=== PATIENT | male | born 1990 | race Caucasian/White ===

== ENCOUNTER 2016-04-15 14:53 | Emergency (ER) | payer BC ==
[~2016-04-15 14:53] MED LIST: FLAG500T PO; IBUP600T26 OR; NO HISTORICAL MEDS; NORCOTAB OR; PERCOCET PO; SEPT800T PO; TYLE650T30 PO
[2016-04-15 15:34] LABS: MEAN CORPUSCULAR HEMOGLOBIN 29.6 pg (27.0-33.0); MEAN CORPUSCULAR HGB CONC 33.3 g/dl (32.0-36.5); MEAN CORPUSCULAR VOLUME 88.9 fl (80.0-96.0); PLATELET COUNT, AUTOMATED 289 k/mm3 (150-450); RED CELL DISTRIBUTION WIDTH 13.1 % (11.5-14.5); WHITE BLOOD COUNT 16.8 K/mm3 (4.0-10.0)
--- NOTE | 2016-04-15 15:49 | REP ---
Clinical: Syncope. Chest pain . Comparison: 12/28/2015 . Technique: PA and lateral. Findings: The mediastinum and cardiac silhouette are normal. The lung palacios are clear and without acute consolidation, effusion, or pneumothorax. The skeletal structures are intact and normal. Impression: 1. No acute cardiopulmonary process. Signed by Angel Hassan MD 04/15/2016 03:40 P
[2016-04-15 15:51] LABS: ANION GAP 8 MEQ/L (8-16); BLOOD UREA NITROGEN 17 MG/DL (7-18); CALCIUM LEVEL 8.6 MG/DL (8.5-10.1); CARBON DIOXIDE LEVEL 29 MEQ/L (21-32); CHLORIDE LEVEL 104 MEQ/L (98-107); CREATININE FOR GFR 1.24 MG/DL (0.70-1.30); GLOMERULAR FILTRATION RATE > 60.0 (>60); GLUCOSE, FASTING 144 MG/DL (70-105); POTASSIUM SERUM 3.3 MEQ/L (3.5-5.1); SODIUM LEVEL 141 MEQ/L (136-145); T UPTAKE 33 % (33-40); THYROXINE (T4) 9.8 UG/DL (4.5-12.0)
[2016-04-15 15:52] LABS: BANDS 2 % (< 11)
--- NOTE | 2016-04-15 18:41 | EDDOCDS ---
Nurse's Notes [facility] Name: Uziel Jordan Age: 25 yrs Sex: Male : 1990 Arrival Date: 04/15/2016 Time: 14:53 Bed 10 Private MD: Chema Wang MD Diagnosis: Heat syncope Presentation: 04/15 15:07 Presenting complaint: Patient states: states that he was working on his bathroom, ml6 states felt overheated, went outside and vomited x 1. Adult Sepsis Screening: The patient does not have new or worsening altered mentation. Patient's respiratory rate is less than 22. Systolic blood pressure is greater than 100. Patient has a qSOFA score of 0- Negative Sepsis Screen. Suicide/Homicide risk assessment- the patient denies having any suicidal and/or homicidal ideations and does not present with any other emotional, behavioral or mental health complaints. Status: Patient is not a service trainer or dependent. Transition of care: patient was not received from another setting of care. 15:07 Acuity: KITTY Level 3 ml6 15:07 Method Of Arrival: Ambulance ml6 Triage Assessment: 15:11 General: Appears in no apparent distress, Behavior is appropriate for age, cooperative. ml6 Pain: Denies pain. HIV screening NA for this visit Offered previously. Neurological: No deficits noted. Level of Consciousness is awake, alert, Oriented to person, place, time, Level Vial Grinder are equal bilaterally Moves all extremities. Full function Gait is steady, Speech is normal, Facial symmetry appears normal. Cardiovascular: No deficits noted. Capillary refill < 3 seconds is brisk in bilateral fingers toes Heart tones S1 S2 present. Respiratory: No deficits noted. Airway is patent Breath sounds are clear bilaterally. GI: No deficits noted. Historical: - Allergies: Hydrocodone-Acetaminophen (Vomit); - Home Meds: 1. oxycodone-acetaminophen 5-325 mg Oral tab 1 tab every 4-6 hours (Last dose: 04/15/2016 10:30) 2. amoxicillin 500 mg Oral cap 1 cap every 8 hours (Last dose: 04/15/2016 12:00) 3. Synthroid 150 mcg Oral tab 1 tab once daily (Last dose: 04/15/2016 10:00) - PMHx: Hypothyroidism; - PSHx: Thyroidectomy (2015); cyst removed from chest (2016); Appendectomy (2012); - Social history: Smoking status: Patient states was never smoker of tobacco. No barriers to communication noted, Speaks appropriately for age. - Family history: Not pertinent. - : The pt / caregiver states he / she is not on anticoagulants. Home medication list is obtained from the patient. - Exposure Risk Screening:: None identified. Screenin:17 Screening information is obtained from the patient. Fall risk: No risks identified. ml6 Assistance ADL's: requires no assistance with activities of daily living. Abuse/DV Screen: The patient / caregiver reports he/she is: not in a situation that causes fear, pain or injury. Nutritional screening: No deficits noted. Advance Directives: Currently, there is no health care proxy. home support is adequate. Assessment: 15:11 General: see triage assessment. ml6 16:15 Reassessment: Patient appears in no apparent distress at this time. Patient denies pain ml6 at this time. Patient states feeling better. Patient states symptoms have improved. 17:15 General: Appears in no apparent distress, comfortable. Pain: Denies pain. Neurological: ml6 No deficits noted. Level of Consciousness is awake, alert, Oriented to person, place, time, Level Vial Grinder are equal bilaterally. Cardiovascular: No deficits noted. Capillary refill < 3 seconds is brisk in bilateral fingers toes. Respiratory: No deficits noted. Airway is patent Respiratory effort is even, unlabored, Respiratory pattern is regular, symmetrical, Breath sounds are clear bilaterally. GI: No deficits noted. 18:37 General: Appears in no apparent distress, comfortable, Behavior is appropriate for age, ml6 cooperative. Pain: Denies pain. Neurological: No deficits noted. Level of Consciousness is awake, alert, Oriented to person, place, time, Level Vial Grinder are equal bilaterally Moves all extremities. Gait is steady. Cardiovascular: No deficits noted. Capillary refill < 3 seconds is brisk in bilateral fingers toes Heart tones S1 S2 present. Respiratory: No deficits noted. Airway is patent Respiratory effort is even, unlabored, Respiratory pattern is regular, symmetrical, Breath sounds are clear bilaterally. GI: No deficits noted. Abdomen is flat, Bowel sounds present X 4 quads. Vital Signs: 15:10 BP 133 / 75; Pulse 102; Resp 18; Temp 97.8(O); Pulse Ox 98% on R/A; Weight 88.45 kg ml6 (R); Height 6 ft. 0 in. (182.88 cm) (R); Pain 0/10; 15:16 BP 135 / 72 Supine; Pulse 102; ml6 15:16 BP 127 / 72 Sitting; Pulse 105; ml6 15:16 BP 130 / 76 Standing; Pulse 106; ml6 15:48 BP 132 / 72 (auto/); ml6 15:48 Pulse 98 MON; Pulse Ox 99% ; ml6 16:18 BP 119 / 67 (auto/); ml6 16:18 Pulse 96 MON; Pulse Ox 98% ; ml6 16:48 BP 123 / 69 (auto/); ml6 16:48 Pulse 90 MON; Pulse Ox 99% ; ml6 17:32 BP 128 / 69 (auto/); ml6 17:32 Pulse 98 MON; Pulse Ox 100% ; ml6 17:48 BP 130 / 63 (auto/); ml6 17:48 Pulse 90 MON; Resp 16; Pulse Ox 98% on R/A; ml6 18:18 BP 126 / 73 (auto/); ml6 18:18 Pulse 94 MON; Resp 16; Temp 98.3(O); Pulse Ox 98% on R/A; Pain 0/10; ml6 15:10 Body Mass Index 26.45 (88.45 kg, 182.88 cm) 6 Vitals: 15:10 Log In Time N/A - ambulance arrival. [facility] ED Course: 14:55 Patient visited by Malka Clark PCA. ar3 14:55 Vince Montgomery, RADHA is Primary Nurse. ar3 14:55 Chema Wang is Private Physician. ar3 14:55 Patient moved to Waiting ar3 14:55 Patient moved to 10 ar3 15:07 Maria M Ray FNP is PHCP. le 15:08 Triage Initiated ml6 15:15 EKG done. (by ED staff). Reviewed by Maria M AGUILAR. dem1 15:18 The patient / caregiver is instructed regarding the plan of care and ED course. ml6 15:18 Patient has correct armband on for positive identification. Placed in gown. Bed in low dem1 position. Call light in reach. Side rails up X2. monitor and storage bin tender on. Pulse ox on. NIBP on. 15:18 Inserted peripheral IV: 18gauge IV in left antecubital area and blood collected. ml6 Patient tolerated the procedure well. Labs drawn. (by ED staff). 15:20 Patient visited by Barry Schumacher. dem1 15:28 Patient visited by Maria M Ray FNP. le 15:28 Patient visited by Maria M Ray FNP. le 15:59 [place] [place] was scanned into [employer] and attached to record. gb 16:03 Patient visited by Vince Montgomery RN. ml6 16:05 DIFFERENTIAL NO CHARGE Sent. ld5 16:39 Chest, 2 View (pa\E\lat) Returned. EDMS 17:12 Patient visited by Vince Montgomery, RADHA. ml6 17:41 Patient visited by Vince Montgomery RN. ml6 18:00 Chema Wang is Referral Physician. le 18:00 [facility], Maria Elena\ [place] is Referral Physician. le 18:40 Discontinued IV bleeding controlled, pressure dressing applied, No redness/swelling at ml6 site. No procedures done that require assistance. Administered Medications: 16:08 Drug: NS 0.9% 1000 ml [sodium chloride 0.9 % intravenous solution] Route: IV; Rate: ml6 bolus; Site: left antecubital; 17:41 Follow up: IV Status: Completed infusion; Infusion discontinued; IV Intake: 1000ml ml6 Intake: 17:41 IV: 1000.00ml; Total: 1000.00ml. ml6 Order Results: Lab Order: CBC with Diff; SPEC'M 04/15/16 15:05 Test: WHITE BLOOD COUNT; Value: 16.8; Range: 4.0-10.0; Abnormal: Above high normal; Units: K/mm3; Status: F Test: RED BLOOD COUNT; Value: 4.73; Range: 4.30-6.10; Units: M/mm3; Status: F Test: HEMOGLOBIN; Value: 14.0; Range: 14.0-18.0; Units: g/dl; Status: F Test: HEMATOCRIT; Value: 42.1; Range: 42.0-52.0; Units: %; Status: F Test: MEAN CORPUSCULAR VOLUME; Value: 88.9; Range: 80.0-96.0; Units: fl; Status: F Test: MEAN CORPUSCULAR HEMOGLOBIN; Value: 29.6; Range: 27.0-33.0; Units: pg; Status: F Test: MEAN CORPUSCULAR HGB CONC; Value: 33.3; Range: 32.0-36.5; Units: g/dl; Status: F Test: RED CELL DISTRIBUTION WIDTH; Value: 13.1; Range: 11.5-14.5; Units: %; Status: F Test: PLATELET COUNT, AUTOMATED; Value: 289; Range: 150-450; Units: k/mm3; Status: F Test: NEUTROPHILS; Value: 79; Range: 35-75; Abnormal: Above high normal; Units: %; Status: F Test: BANDS; Value: 2; Range: < 11; Units: %; Status: F Test: LYMPHOCYTES; Value: 16; Range: 16-52; Units: %; Status: F Test: MONOCYTES; Value: 3; Range: 0-8; Units: %; Status: F Test: RBC MORPHOLOGY; Value: NORMAL; Status: F Lab Order: [facility] 04/15/16 15:05 Test: GLUCOSE, FASTING; Value: 144; Range: 70-105; Abnormal: Above high normal; Units: MG/DL; Status: F Test: BLOOD UREA NITROGEN; Value: 17; Range: 7-18; Units: MG/DL; Status: F Test: CREATININE FOR GFR; Value: 1.24; Range: 0.70-1.30; Units: MG/DL; Status: F Test: GLOMERULAR FILTRATION RATE; Value: > 60.0; Range: >60; Status: F Test: SODIUM LEVEL; Value: 141; Range: 136-145; Units: MEQ/L; Status: F Test: POTASSIUM SERUM; Value: 3.3; Range: 3.5-5.1; Abnormal: Below low normal; Units: MEQ/L; Status: F Test: CHLORIDE LEVEL; Value: 104; Range: 98-107; Units: MEQ/L; Status: F Test: CARBON DIOXIDE LEVEL; Value: 29; Range: 21-32; Units: MEQ/L; Status: F Test: ANION GAP; Value: 8; Range: 8-16; Units: MEQ/L; Status: F Test: CALCIUM LEVEL; Value: 8.6; Range: 8.5-10.1; Units: MG/DL; Status: F Test Note: ; Units are mL/min/1.73 m2 Chronic Kidney Disease Staging per NKF: Stage I & II GFR >=60 Normal to Mildly Decreased Stage III GFR 30-59 Moderately Decreased Stage IV GFR 15-29 Severely Decreased Stage V GFR <15 Very Little GFR Left ESRD GFR <15 on CHEMICAL DEPENDENCY NURSE Lab Order: Thyroid Profile; SPEC'M 04/15/16 15:05 Test: T UPTAKE; Value: 33; Range: 33-40; Units: %; Status: F Test: THYROXINE (T4); Value: 9.8; Range: 4.5-12.0; Units: UG/DL; Status: F Test: FREE THYROXINE INDEX; Value: 3.2; Range: 1.4-3.8; Units: %; Status: F Test: THYROID STIMULATING HORMONE; Value: 53.200; Range: 0.358-3.740; Abnormal: Above high normal; Units: uIU/ML; Status: F Lab Order: PLATELET ESTIMATE; SPEC'M 04/15/16 15:05 Test: PLATELET ESTIMATE; Value: NORMAL; Range: NORMAL; Status: F Radiology Order: Chest, 2 View (pa\E\lat) Test: Chest, 2 View (pa\E\lat) REASON FOR EXAMINATION: near syncope; Clinical: Syncope. Chest pain .; ; Comparison: 12/28/2015 .; ; Technique: PA and lateral.; ; Findings:; The mediastinum and cardiac silhouette are normal. The lung palacios are clear and; without acute consolidation, effusion, or pneumothorax. The skeletal structures; are intact and normal.; ; Impression:; 1. No acute cardiopulmonary process.; ; ; Signed by; Angel Hassan MD 04/15/2016 03:40 P; Outcome: 18:00 Discharge ordered by Provider. le 18:40 Discharge Assessment: patient administered narcotics - no. The following High Risk ml6 Discharge criteria are identified: None. Discharged to home ambulatory, with parent. with significant other. Condition: improved. Discharge instructions given to patient, Instructed on discharge instructions, follow up and referral plans. medication usage, Demonstrated understanding of instructions, medications, Pt was receptive of discharge instructions/ teaching. No special radiology studies were completed. Property :Personal belongings accompany Pt. 18:41 Patient left the ED. ml6 Signatures: Dispatcher [employer] EDMS Aracely Angel, Reg Reg gb Maria M Ray, MAILMASTER MAILMASTER Vince Eaton, RN RN ml6 Malka Clark, PARAMEDIC RN PARAMEDIC RN ar3 Africa Fernandes,RN RN ld5 Barry Schumacher1 MTDD
--- NOTE | 2016-04-15 18:41 | EDDOCDS ---
Physician Documentation [facility] Name: Uziel Jordan Age: 25 yrs Sex: Male : 1990 Arrival Date: 04/15/2016 Time: 14:53 Bed 10 Private MD: Chema Wang MD Disposition: 04/15/16 18:00 Discharged to Home/Self Care. Impression: Heat syncope. - Condition is Stable. - Discharge Instructions: Near-Syncope. - Medication Reconciliation, Local Pharmacy Hours form. - Follow up: Chema Wang; When: Call to arrange an appointment; Reason: Recheck today's complaints, Continuance of care. Follow up: [facility], \T\ [place]; When: Call to arrange an appointment; Reason: Recheck today's complaints, Continuance of care. - Problem is an acute exacerbation. - Symptoms are resolved. - Notes: Keep hydrated Ensure you areeating regular nutritious meals Return to the ED for any further concerns Historical: - Allergies: Hydrocodone-Acetaminophen (Vomit); - Home Meds: 1. oxycodone-acetaminophen 5-325 mg Oral tab 1 tab every 4-6 hours (Last dose: 04/15/2016 10:30) 2. amoxicillin 500 mg Oral cap 1 cap every 8 hours (Last dose: 04/15/2016 12:00) 3. Synthroid 150 mcg Oral tab 1 tab once daily (Last dose: 04/15/2016 10:00) - PMHx: Hypothyroidism; - PSHx: Thyroidectomy (2015); cyst removed from chest (2015); Appendectomy (2011); - Social history: Smoking status: Patient states was never smoker of tobacco. No barriers to communication noted, Speaks appropriately for age. - Family history: Not pertinent. - : The pt / caregiver states he / she is not on anticoagulants. Home medication list is obtained from the patient. - Exposure Risk Screening:: None identified. Vital Signs: 04/15 15:10 BP 133 / 75; Pulse 102; Resp 18; Temp 97.8(O); Pulse Ox 98% on R/A; Weight 88.45 kg / ml6 195 lbs (R); Height 6 ft. 0 in. (182.88 cm) (R); Pain 0/10; 15:16 BP 135 / 72 Supine; Pulse 102; ml6 15:16 BP 127 / 72 Sitting; Pulse 105; ml6 15:16 BP 130 / 76 Standing; Pulse 106; ml6 15:48 BP 132 / 72 (auto/); ml6 15:48 Pulse 98 MON; Pulse Ox 99% ; ml6 16:18 BP 119 / 67 (auto/); ml6 16:18 Pulse 96 MON; Pulse Ox 98% ; ml6 16:48 BP 123 / 69 (auto/); ml6 16:48 Pulse 90 MON; Pulse Ox 99% ; ml6 17:32 BP 128 / 69 (auto/); ml6 17:32 Pulse 98 MON; Pulse Ox 100% ; ml6 17:48 BP 130 / 63 (auto/); ml6 17:48 Pulse 90 MON; Resp 16; Pulse Ox 98% on R/A; ml6 18:18 BP 126 / 73 (auto/); ml6 18:18 Pulse 94 MON; Resp 16; Temp 98.3(O); Pulse Ox 98% on R/A; Pain 0/10; ml6 15:10 Body Mass Index 26.45 (88.45 kg, 182.88 cm) ml6 MDM: 15:08 Orthostatic VS ordered. le 15:09 Chest, 2 View (pa\E\lat) Ordered. EDMS 15:09 ECG WITH READING ER PHYS+CARDIAG ordered. EDMS 15:26 Fluid Challenge ordered. le 15:28 CBC with Diff Ordered. EDMS 15:28 BMP Ordered. EDMS 15:28 Thyroid Profile Ordered. EDMS 15:35 DIFFERENTIAL NO CHARGE Ordered. EDMS 15:35 PLATELET ESTIMATE Ordered. EDMS 15:52 Financial registration complete. gb 15:59 [place] [place] was scanned into [employer] and attached to record. gb 16:02 CBC with Diff Reviewed. le 16:02 BMP Reviewed. le 16:02 Thyroid Profile Reviewed. le 16:02 PLATELET ESTIMATE Reviewed. le 16:04 NS 0.9% 1000 ml IV at bolus once ordered. le Administered Medications: 16:08 Drug: NS 0.9% 1000 ml [sodium chloride 0.9 % intravenous solution] Route: IV; Rate: ml6 bolus; Site: left antecubital; 17:41 Follow up: IV Status: Completed infusion; Infusion discontinued; IV Intake: 1000ml ml6 Signatures: Dispatcher [employer] EDMS Aracely Angel, Reg Reg gb Maria M Ray, NATIONAL SALES REPRESENTATIVE NATIONAL SALES REPRESENTATIVE Vince Eaton, RN RN ml6 The chart was reviewed and I authenticate all verbal orders and agree with the evaluation and treatment provided.Attachments: 15:59 [facility] Payment Agreement gb MTDD
--- NOTE | 2016-04-15 19:50 | ECGEPIP ---
Stationary ECG Study [facility] - ED Test Date: 2016-04-15 Pat Name: KATIE SCOTT Department: Room: - Gender: M Event Technician: alba : 1990 Requested By: REANNA AGUILAR Order Number: [id number] Reading MD: Kassie Meier Measurements Intervals [place] Rate: 100 P: 37 WI: 140 QRS: 51 QRSD: 93 T: 29 QT: 288 QTc: 372 Interpretive Statements SINUS TACHYCARDIA NONSPECIFIC T-WAVE ABNORMALITY ABNORMAL RHYTHM ECG Electronically Signed On 04-15-2016 19:49:58 EST by Kassie Meier
--- NOTE | 2016-04-17 19:41 | EDDOCDS ---
Physician Documentation [facility] Name: Uziel Jordan Age: 25 yrs Sex: Male : 1990 Arrival Date: 04/15/2016 Time: 14:53 Bed 10 Private MD: Chema Wang MD Disposition: 04/15/16 18:00 Discharged to Home/Self Care. Impression: Heat syncope. - Condition is Stable. - Discharge Instructions: Near-Syncope. - Medication Reconciliation, Local Pharmacy Hours form. - Follow up: Chema Wang; When: Call to arrange an appointment; Reason: Recheck today's complaints, Continuance of care. Follow up: [facility], \T\ [place]; When: Call to arrange an appointment; Reason: Recheck today's complaints, Continuance of care. - Problem is an acute exacerbation. - Symptoms are resolved. - Notes: Keep hydrated Ensure you areeating regular nutritious meals Return to the ED for any further concerns Historical: - Allergies: Hydrocodone-Acetaminophen (Vomit); - Home Meds: 1. oxycodone-acetaminophen 5-325 mg Oral tab 1 tab every 4-6 hours (Last dose: 04/15/2016 10:30) 2. amoxicillin 500 mg Oral cap 1 cap every 8 hours (Last dose: 04/15/2016 12:00) 3. Synthroid 150 mcg Oral tab 1 tab once daily (Last dose: 04/15/2016 10:00) - PMHx: Hypothyroidism; - PSHx: Thyroidectomy (2015); cyst removed from chest (2015); Appendectomy (2011); - Social history: Smoking status: Patient states was never smoker of tobacco. No barriers to communication noted, Speaks appropriately for age. - Family history: Not pertinent. - : The pt / caregiver states he / she is not on anticoagulants. Home medication list is obtained from the patient. - Exposure Risk Screening:: None identified. Vital Signs: 04/15 15:10 BP 133 / 75; Pulse 102; Resp 18; Temp 97.8(O); Pulse Ox 98% on R/A; Weight 88.45 kg / ml6 195 lbs (R); Height 6 ft. 0 in. (182.88 cm) (R); Pain 0/10; 15:16 BP 135 / 72 Supine; Pulse 102; ml6 15:16 BP 127 / 72 Sitting; Pulse 105; ml6 15:16 BP 130 / 76 Standing; Pulse 106; ml6 15:48 BP 132 / 72 (auto/); ml6 15:48 Pulse 98 MON; Pulse Ox 99% ; ml6 16:18 BP 119 / 67 (auto/); ml6 16:18 Pulse 96 MON; Pulse Ox 98% ; ml6 16:48 BP 123 / 69 (auto/); ml6 16:48 Pulse 90 MON; Pulse Ox 99% ; ml6 17:32 BP 128 / 69 (auto/); ml6 17:32 Pulse 98 MON; Pulse Ox 100% ; ml6 17:48 BP 130 / 63 (auto/); ml6 17:48 Pulse 90 MON; Resp 16; Pulse Ox 98% on R/A; ml6 18:18 BP 126 / 73 (auto/); ml6 18:18 Pulse 94 MON; Resp 16; Temp 98.3(O); Pulse Ox 98% on R/A; Pain 0/10; ml6 15:10 Body Mass Index 26.45 (88.45 kg, 182.88 cm) ml6 MDM: 15:08 Orthostatic VS ordered. le 15:09 Chest, 2 View (pa\E\lat) Ordered. EDMS 15:09 ECG WITH READING ER PHYS+CARDIAG ordered. EDMS 15:26 Fluid Challenge ordered. le 15:28 CBC with Diff Ordered. EDMS 15:28 BMP Ordered. EDMS 15:28 Thyroid Profile Ordered. EDMS 15:35 DIFFERENTIAL NO CHARGE Ordered. EDMS 15:35 PLATELET ESTIMATE Ordered. EDMS 15:52 Financial registration complete. gb 15:59 [place] [place] Payment Agreement was scanned into [employer] and attached to record. gb 16:02 CBC with Diff Reviewed. le 16:02 BMP Reviewed. le 16:02 Thyroid Profile Reviewed. le 16:02 PLATELET ESTIMATE Reviewed. le 16:04 NS 0.9% 1000 ml IV at bolus once ordered. le 20:11 T-Sheet-- Draft Copy was scanned into [employer] and attached to record. klr 04/17 09:50 ECG/EKG was scanned into [employer] and attached to record. lg Administered Medications: 04/15 16:08 Drug: NS 0.9% 1000 ml [sodium chloride 0.9 % intravenous solution] Route: IV; Rate: ml6 bolus; Site: left antecubital; 17:41 Follow up: IV Status: Completed infusion; Infusion discontinued; IV Intake: 1000ml ml6 Signatures: Dispatcher [employer] EDMS Aracely Angel, Reg Reg gb Gaye Inman, Reg Reg lg Maria M Ray, CUPOLA CHARGER CUPOLA CHARGER Vince Eaton, RN RN ml6 Shayy Alfred The chart was reviewed and I authenticate all verbal orders and agree with the evaluation and treatment provided.Attachments: 15:59 [facility] Payment Agreement gb 20:11 T-Sheet-- Draft Copy klr 04/17 09:50 ECG/EKG lg Chart Complete MTDD
--- NOTE | 2016-04-17 19:42 | EDDOCDS ---
Physician Documentation [facility] Name: Uziel Jordan Age: 25 yrs Sex: Male : 1990 Arrival Date: 04/15/2016 Time: 14:53 Bed 10 Private MD: Chema Wang MD Disposition: 04/15/16 18:00 Discharged to Home/Self Care. Impression: Heat syncope. - Condition is Stable. - Discharge Instructions: Near-Syncope. - Medication Reconciliation, Local Pharmacy Hours form. - Follow up: Chema Wang; When: Call to arrange an appointment; Reason: Recheck today's complaints, Continuance of care. Follow up: [facility], \T\ [place]; When: Call to arrange an appointment; Reason: Recheck today's complaints, Continuance of care. - Problem is an acute exacerbation. - Symptoms are resolved. - Notes: Keep hydrated Ensure you areeating regular nutritious meals Return to the ED for any further concerns Historical: - Allergies: Hydrocodone-Acetaminophen (Vomit); - Home Meds: 1. oxycodone-acetaminophen 5-325 mg Oral tab 1 tab every 4-6 hours (Last dose: 04/15/2016 10:30) 2. amoxicillin 500 mg Oral cap 1 cap every 8 hours (Last dose: 04/15/2016 12:00) 3. Synthroid 150 mcg Oral tab 1 tab once daily (Last dose: 04/15/2016 10:00) - PMHx: Hypothyroidism; - PSHx: Thyroidectomy (2015); cyst removed from chest (2015); Appendectomy (2011); - Social history: Smoking status: Patient states was never smoker of tobacco. No barriers to communication noted, Speaks appropriately for age. - Family history: Not pertinent. - : The pt / caregiver states he / she is not on anticoagulants. Home medication list is obtained from the patient. - Exposure Risk Screening:: None identified. Vital Signs: 04/15 15:10 BP 133 / 75; Pulse 102; Resp 18; Temp 97.8(O); Pulse Ox 98% on R/A; Weight 88.45 kg / ml6 195 lbs (R); Height 6 ft. 0 in. (182.88 cm) (R); Pain 0/10; 15:16 BP 135 / 72 Supine; Pulse 102; ml6 15:16 BP 127 / 72 Sitting; Pulse 105; ml6 15:16 BP 130 / 76 Standing; Pulse 106; ml6 15:48 BP 132 / 72 (auto/); ml6 15:48 Pulse 98 MON; Pulse Ox 99% ; ml6 16:18 BP 119 / 67 (auto/); ml6 16:18 Pulse 96 MON; Pulse Ox 98% ; ml6 16:48 BP 123 / 69 (auto/); ml6 16:48 Pulse 90 MON; Pulse Ox 99% ; ml6 17:32 BP 128 / 69 (auto/); ml6 17:32 Pulse 98 MON; Pulse Ox 100% ; ml6 17:48 BP 130 / 63 (auto/); ml6 17:48 Pulse 90 MON; Resp 16; Pulse Ox 98% on R/A; ml6 18:18 BP 126 / 73 (auto/); ml6 18:18 Pulse 94 MON; Resp 16; Temp 98.3(O); Pulse Ox 98% on R/A; Pain 0/10; ml6 15:10 Body Mass Index 26.45 (88.45 kg, 182.88 cm) ml6 MDM: 15:08 Orthostatic VS ordered. le 15:09 Chest, 2 View (pa\E\lat) Ordered. EDMS 15:09 ECG WITH READING ER PHYS+CARDIAG ordered. EDMS 15:26 Fluid Challenge ordered. le 15:28 CBC with Diff Ordered. EDMS 15:28 BMP Ordered. EDMS 15:28 Thyroid Profile Ordered. EDMS 15:35 DIFFERENTIAL NO CHARGE Ordered. EDMS 15:35 PLATELET ESTIMATE Ordered. EDMS 15:52 Financial registration complete. gb 15:59 [facility] [place] Payment Agreement was scanned into [employer] and attached to record. gb 16:02 CBC with Diff Reviewed. le 16:02 BMP Reviewed. le 16:02 Thyroid Profile Reviewed. le 16:02 PLATELET ESTIMATE Reviewed. le 16:04 NS 0.9% 1000 ml IV at bolus once ordered. le 20:11 T-Sheet-- Draft Copy was scanned into [employer] and attached to record. klr 04/17 09:50 ECG/EKG was scanned into [employer] and attached to record. lg Administered Medications: 04/15 16:08 Drug: NS 0.9% 1000 ml [sodium chloride 0.9 % intravenous solution] Route: IV; Rate: ml6 bolus; Site: left antecubital; 17:41 Follow up: IV Status: Completed infusion; Infusion discontinued; IV Intake: 1000ml ml6 Signatures: Dispatcher [employer] EDMS Aracely Angel, Reg Reg gb Gaye Inman, Reg Reg lg Maria M Ray, ORGANIC LAB WORKER ORGANIC LAB WORKER Vince Eaton, RN RN ml6 Shayy Alfred The chart was reviewed and I authenticate all verbal orders and agree with the evaluation and treatment provided.Attachments: 15:59 [facility] Payment Agreement gb 20:11 T-Sheet-- Draft Copy klr 04/17 09:50 ECG/EKG lg Chart Complete MTDD
--- NOTE | 2016-04-17 19:42 | EDDOCDS ---
Nurse's Notes [facility] Name: Katie Scott Age: 25 yrs Sex: Male : 1990 Arrival Date: 04/15/2016 Time: 14:53 Bed 10 Private MD: Chema Wang MD Diagnosis: Heat syncope Presentation: 04/15 15:07 Presenting complaint: Patient states: states that he was working on his bathroom, ml6 states felt overheated, went outside and vomited x 1. Adult Sepsis Screening: The patient does not have new or worsening altered mentation. Patient's respiratory rate is less than 22. Systolic blood pressure is greater than 100. Patient has a qSOFA score of 0- Negative Sepsis Screen. Suicide/Homicide risk assessment- the patient denies having any suicidal and/or homicidal ideations and does not present with any other emotional, behavioral or mental health complaints. Status: Patient is not a medical service technician or dependent. Transition of care: patient was not received from another setting of care. 15:07 Acuity: KITTY Level 3 ml6 15:07 Method Of Arrival: Ambulance ml6 Triage Assessment: 15:11 General: Appears in no apparent distress, Behavior is appropriate for age, cooperative. ml6 Pain: Denies pain. HIV screening NA for this visit Offered previously. Neurological: No deficits noted. Level of Consciousness is awake, alert, Oriented to person, place, time, Corporate Claims Examiner are equal bilaterally Moves all extremities. Full function Gait is steady, Speech is normal, Facial symmetry appears normal. Cardiovascular: No deficits noted. Capillary refill < 3 seconds is brisk in bilateral fingers toes Heart tones S1 S2 present. Respiratory: No deficits noted. Airway is patent Breath sounds are clear bilaterally. GI: No deficits noted. Historical: - Allergies: Hydrocodone-Acetaminophen (Vomit); - Home Meds: 1. oxycodone-acetaminophen 5-325 mg Oral tab 1 tab every 4-6 hours (Last dose: 04/15/2016 10:30) 2. amoxicillin 500 mg Oral cap 1 cap every 8 hours (Last dose: 04/15/2016 12:00) 3. Synthroid 150 mcg Oral tab 1 tab once daily (Last dose: 04/15/2016 10:00) - PMHx: Hypothyroidism; - PSHx: Thyroidectomy (2015); cyst removed from chest (2016); Appendectomy (2012); - Social history: Smoking status: Patient states was never smoker of tobacco. No barriers to communication noted, Speaks appropriately for age. - Family history: Not pertinent. - : The pt / caregiver states he / she is not on anticoagulants. Home medication list is obtained from the patient. - Exposure Risk Screening:: None identified. Screenin:17 Screening information is obtained from the patient. Fall risk: No risks identified. ml6 Assistance ADL's: requires no assistance with activities of daily living. Abuse/DV Screen: The patient / caregiver reports he/she is: not in a situation that causes fear, pain or injury. Nutritional screening: No deficits noted. Advance Directives: Currently, there is no health care proxy. home support is adequate. Assessment: 15:11 General: see triage assessment. ml6 16:15 Reassessment: Patient appears in no apparent distress at this time. Patient denies pain ml6 at this time. Patient states feeling better. Patient states symptoms have improved. 17:15 General: Appears in no apparent distress, comfortable. Pain: Denies pain. Neurological: ml6 No deficits noted. Level of Consciousness is awake, alert, Oriented to person, place, time, Corporate Claims Examiner are equal bilaterally. Cardiovascular: No deficits noted. Capillary refill < 3 seconds is brisk in bilateral fingers toes. Respiratory: No deficits noted. Airway is patent Respiratory effort is even, unlabored, Respiratory pattern is regular, symmetrical, Breath sounds are clear bilaterally. GI: No deficits noted. 18:37 General: Appears in no apparent distress, comfortable, Behavior is appropriate for age, ml6 cooperative. Pain: Denies pain. Neurological: No deficits noted. Level of Consciousness is awake, alert, Oriented to person, place, time, Corporate Claims Examiner are equal bilaterally Moves all extremities. Gait is steady. Cardiovascular: No deficits noted. Capillary refill < 3 seconds is brisk in bilateral fingers toes Heart tones S1 S2 present. Respiratory: No deficits noted. Airway is patent Respiratory effort is even, unlabored, Respiratory pattern is regular, symmetrical, Breath sounds are clear bilaterally. GI: No deficits noted. Abdomen is flat, Bowel sounds present X 4 quads. Vital Signs: 15:10 BP 133 / 75; Pulse 102; Resp 18; Temp 97.8(O); Pulse Ox 98% on R/A; Weight 88.45 kg ml6 (R); Height 6 ft. 0 in. (182.88 cm) (R); Pain 0/10; 15:16 BP 135 / 72 Supine; Pulse 102; ml6 15:16 BP 127 / 72 Sitting; Pulse 105; ml6 15:16 BP 130 / 76 Standing; Pulse 106; ml6 15:48 BP 132 / 72 (auto/); ml6 15:48 Pulse 98 MON; Pulse Ox 99% ; ml6 16:18 BP 119 / 67 (auto/); ml6 16:18 Pulse 96 MON; Pulse Ox 98% ; ml6 16:48 BP 123 / 69 (auto/); ml6 16:48 Pulse 90 MON; Pulse Ox 99% ; ml6 17:32 BP 128 / 69 (auto/); ml6 17:32 Pulse 98 MON; Pulse Ox 100% ; ml6 17:48 BP 130 / 63 (auto/); ml6 17:48 Pulse 90 MON; Resp 16; Pulse Ox 98% on R/A; ml6 18:18 BP 126 / 73 (auto/); ml6 18:18 Pulse 94 MON; Resp 16; Temp 98.3(O); Pulse Ox 98% on R/A; Pain 0/10; ml6 15:10 Body Mass Index 26.45 (88.45 kg, 182.88 cm) 6 Vitals: 15:10 Log In Time N/A - ambulance arrival. [facility] ED Course: 14:55 Patient visited by Malka Clark PCA. ar3 14:55 Vince Montgomery, RADHA is Primary Nurse. ar3 14:55 Chema Wang is Private Physician. ar3 14:55 Patient moved to Waiting ar3 14:55 Patient moved to 10 ar3 15:07 Maria M Ray FNP is PHCP. le 15:08 Triage Initiated ml6 15:15 EKG done. (by ED staff). Reviewed by Maria M AGUILAR. dem1 15:18 The patient / caregiver is instructed regarding the plan of care and ED course. ml6 15:18 Patient has correct armband on for positive identification. Placed in gown. Bed in low dem1 position. Call light in reach. Side rails up X2. monitoring manager on. Pulse ox on. NIBP on. 15:18 Inserted peripheral IV: 18gauge IV in left antecubital area and blood collected. ml6 Patient tolerated the procedure well. Labs drawn. (by ED staff). 15:20 Patient visited by Barry Schumacher. dem1 15:28 Patient visited by Maria M Ray FNP. le 15:28 Patient visited by Maria M Ray FNP. le 15:59 [facility] Payment Agreement was scanned into [employer] and attached to record. gb 16:03 Patient visited by Vince Montgomery RN. ml6 16:05 DIFFERENTIAL NO CHARGE Sent. ld5 16:39 Chest, 2 View (pa\E\lat) Returned. EDMS 17:12 Patient visited by Vince Montgomery, RADHA. ml6 17:41 Patient visited by Vince Montgomery RN. ml6 18:00 Chema Wang is Referral Physician. le 18:00 [facility], T\ RENETTA is Referral Physician. le 18:40 Discontinued IV bleeding controlled, pressure dressing applied, No redness/swelling at ml6 site. No procedures done that require assistance. 20:06 EKG-ADULT Returned. EDMS 20:11 T-Sheet-- Draft Copy was scanned into [employer] and attached to record. klr 02 09:50 ECG/EKG was scanned into [employer] and attached to record. lg Administered Medications: 04/15 16:08 Drug: NS 0.9% 1000 ml [sodium chloride 0.9 % intravenous solution] Route: IV; Rate: ml6 bolus; Site: left antecubital; 17:41 Follow up: IV Status: Completed infusion; Infusion discontinued; IV Intake: 1000ml ml6 Intake: 17:41 IV: 1000.00ml; Total: 1000.00ml. ml6 Order Results: Lab Order: CBC with Diff; SPEC'M 04/15/16 15:05 Test: WHITE BLOOD COUNT; Value: 16.8; Range: 4.0-10.0; Abnormal: Above high normal; Units: K/mm3; Status: F Test: RED BLOOD COUNT; Value: 4.73; Range: 4.30-6.10; Units: M/mm3; Status: F Test: HEMOGLOBIN; Value: 14.0; Range: 14.0-18.0; Units: g/dl; Status: F Test: HEMATOCRIT; Value: 42.1; Range: 42.0-52.0; Units: %; Status: F Test: MEAN CORPUSCULAR VOLUME; Value: 88.9; Range: 80.0-96.0; Units: fl; Status: F Test: MEAN CORPUSCULAR HEMOGLOBIN; Value: 29.6; Range: 27.0-33.0; Units: pg; Status: F Test: MEAN CORPUSCULAR HGB CONC; Value: 33.3; Range: 32.0-36.5; Units: g/dl; Status: F Test: RED CELL DISTRIBUTION WIDTH; Value: 13.1; Range: 11.5-14.5; Units: %; Status: F Test: PLATELET COUNT, AUTOMATED; Value: 289; Range: 150-450; Units: k/mm3; Status: F Test: NEUTROPHILS; Value: 79; Range: 35-75; Abnormal: Above high normal; Units: %; Status: F Test: BANDS; Value: 2; Range: < 11; Units: %; Status: F Test: LYMPHOCYTES; Value: 16; Range: 16-52; Units: %; Status: F Test: MONOCYTES; Value: 3; Range: 0-8; Units: %; Status: F Test: RBC MORPHOLOGY; Value: NORMAL; Status: F Lab Order: [facility] 04/15/16 15:05 Test: GLUCOSE, FASTING; Value: 144; Range: 70-105; Abnormal: Above high normal; Units: MG/DL; Status: F Test: BLOOD UREA NITROGEN; Value: 17; Range: 7-18; Units: MG/DL; Status: F Test: CREATININE FOR GFR; Value: 1.24; Range: 0.70-1.30; Units: MG/DL; Status: F Test: GLOMERULAR FILTRATION RATE; Value: > 60.0; Range: >60; Status: F Test: SODIUM LEVEL; Value: 141; Range: 136-145; Units: MEQ/L; Status: F Test: POTASSIUM SERUM; Value: 3.3; Range: 3.5-5.1; Abnormal: Below low normal; Units: MEQ/L; Status: F Test: CHLORIDE LEVEL; Value: 104; Range: 98-107; Units: MEQ/L; Status: F Test: CARBON DIOXIDE LEVEL; Value: 29; Range: 21-32; Units: MEQ/L; Status: F Test: ANION GAP; Value: 8; Range: 8-16; Units: MEQ/L; Status: F Test: CALCIUM LEVEL; Value: 8.6; Range: 8.5-10.1; Units: MG/DL; Status: F Test Note: ; Units are mL/min/1.73 m2 Chronic Kidney Disease Staging per NKF: Stage I & II GFR >=60 Normal to Mildly Decreased Stage III GFR 30-59 Moderately Decreased Stage IV GFR 15-29 Severely Decreased Stage V GFR <15 Very Little GFR Left ESRD GFR <15 on WAREHOUSE TECHNICIAN Lab Order: Thyroid Profile; SPEC'M 04/15/16 15:05 Test: T UPTAKE; Value: 33; Range: 33-40; Units: %; Status: F Test: THYROXINE (T4); Value: 9.8; Range: 4.5-12.0; Units: UG/DL; Status: F Test: FREE THYROXINE INDEX; Value: 3.2; Range: 1.4-3.8; Units: %; Status: F Test: THYROID STIMULATING HORMONE; Value: 53.200; Range: 0.358-3.740; Abnormal: Above high normal; Units: uIU/ML; Status: F Lab Order: PLATELET ESTIMATE; SPEC'M 04/15/16 15:05 Test: PLATELET ESTIMATE; Value: NORMAL; Range: NORMAL; Status: F Radiology Order: EKG-ADULT Test: EKG-ADULT REASON FOR EXAMINATION: near syncope; Stationary ECG Study; [facility] - ED; ; Test Date: 2016-04-15; Pat Name: KATIE SCOTT Department:; Room: -; Gender: M Oven Unloader: dm; : 1990 Requested By: MARIA M AGUILAR; Order Number: [id number] Reading MD: Kassie Meier; Measurements; Intervals [place]; Rate: 100 P: 37; AK: 140 QRS: 51; QRSD: 93 T: 29; QT: 288; QTc: 372; Interpretive Statements; SINUS TACHYCARDIA; NONSPECIFIC T-WAVE ABNORMALITY; ABNORMAL RHYTHM ECG; ; Electronically Signed On 04-15-2016 19:49:58 EST by Kassie Shrestha-Gillespie; Radiology Order: Chest, 2 View (pa\E\lat) Test: Chest, 2 View (pa\E\lat) REASON FOR EXAMINATION: near syncope; Clinical: Syncope. Chest pain .; ; Comparison: 12/28/2015 .; ; Technique: PA and lateral.; ; Findings:; The mediastinum and cardiac silhouette are normal. The lung palacios are clear and; without acute consolidation, effusion, or pneumothorax. The skeletal structures; are intact and normal.; ; Impression:; 1. No acute cardiopulmonary process.; ; ; Signed by; Angel Hassan MD 04/15/2016 03:40 P; Outcome: 18:00 Discharge ordered by Provider. le 18:40 Discharge Assessment: patient administered narcotics - no. The following High Risk ml6 Discharge criteria are identified: None. Discharged to home ambulatory, with parent. with significant other. Condition: improved. Discharge instructions given to patient, Instructed on discharge instructions, follow up and referral plans. medication usage, Demonstrated understanding of instructions, medications, Pt was receptive of discharge instructions/ teaching. No special radiology studies were completed. Property :Personal belongings accompany Pt. 18:41 Patient left the ED. ml6 Signatures: Dispatcher [employer] EDMS Aracely Angel, Reg Reg gb Gaye Inman, Reg Reg lg Maria M Ray, MILITARY LAWYER MILITARY LAWYER Vince Eaton RN RN ml6 Malka Clark, LIEUTENANT BALLISTICS LIEUTENANT BALLISTICS pat3 Africa Fernandes RN RN ld5 Barry Schumacher1 Shayy Alfred Chart Complete MTDD
== END 2016-04-15 18:41 | disposition home or self-care (01) ==
LOC: M ED 14:53
DX: R55 Syncope and collapse (principal); R11.2 Nausea with vomiting, unspecified; E03.9 Hypothyroidism, unspecified; Z79.899 Other long term (current) drug therapy; Z88.5 Allergy status to narcotic agent; Z88.6 Allergy status to analgesic agent

== ENCOUNTER → 2016-06-30 | Outpatient (REF) | payer BC ==
[2016-06-30 13:19] LABS: FREE T4 0.73 NG/DL (0.76-1.46)
== END ==
LOC: M LABDRWAD 12:12
PROVIDERS: ATTEND Internal Medicine
DX: E89.0 Postprocedural hypothyroidism (principal)

== ENCOUNTER → 2016-12-06 | Outpatient (REF) | payer BC ==
[2016-12-06 20:49] LABS: MEAN CORPUSCULAR HEMOGLOBIN 31.5 pg (27.0-33.0); MEAN CORPUSCULAR HGB CONC 34.2 g/dl (32.0-36.5); MEAN CORPUSCULAR VOLUME 92.1 fl (80.0-96.0); RED CELL DISTRIBUTION WIDTH 11.8 % (11.5-14.5); WHITE BLOOD COUNT 8.4 10^3/uL (4.0-10.0)
[2016-12-06 21:20] LABS: EOSINOPHILS 2 % (0-5)
[2016-12-06 21:23] LABS: ALBUMIN 4.9 GM/DL (3.2-5.2); ALBUMIN/GLOBULIN RATIO 1.69 (1.00-1.93); ALKALINE PHOSPHATASE 55 U/L (45-117); ALT/SGPT 26 U/L (12-78); ANION GAP 7 MEQ/L (8-16); AST/SGOT 16 U/L (15-37); BILIRUBIN,TOTAL 0.5 MG/DL (0.2-1.0); BLOOD UREA NITROGEN 15 MG/DL (7-18); CALCIUM LEVEL 9.6 MG/DL (8.5-10.1); CARBON DIOXIDE LEVEL 29 MEQ/L (21-32); CHLORIDE LEVEL 103 MEQ/L (98-107); CREATININE FOR GFR 1.13 MG/DL (0.70-1.30); FREE T4 0.66 NG/DL (0.76-1.46); GLOMERULAR FILTRATION RATE > 60.0 (>60); GLUCOSE, FASTING 68 MG/DL (70-105); POTASSIUM SERUM 4.6 MEQ/L (3.5-5.1); SODIUM LEVEL 139 MEQ/L (136-145); TOTAL PROTEIN 7.8 GM/DL (6.4-8.2)
== END ==
LOC: M SFHCLERA 15:54
PROVIDERS: ATTEND Family Medicine
DX: E03.9 Hypothyroidism, unspecified (principal); Z85.850 Personal history of malignant neoplasm of thyroid; Z98.890 Other specified postprocedural states

== ENCOUNTER → 2016-12-26 | Outpatient (REF) | payer BC | LOC: M LABDRAW1 16:46 | PROVIDERS: ATTEND Internal Medicine Endocrinology, Diabetes & Metabolism | DX: C73 Malignant neoplasm of thyroid gland (principal) ==

== ENCOUNTER → 2017-04-18 | Outpatient (REF) | payer BC ==
[2017-04-18 19:08] LABS: FREE T4 1.22 NG/DL (0.76-1.46)
[2017-04-18 19:10] LABS: THYROGLOBULIN ANTIBODY 48.5 U/ML (<60.0)
[2017-04-24 08:09] LABS: THYROGLOBULIN ANTIBODY 2.3; THYROGLOBULIN INTERPRETATION SEE SEPARATE REPORT; THYROGLOBULIN TUMOR MARKER <0.1
[2017-04-25 08:07] LABS: THRYOGLOBULIN ANTIBODIES (ATA) 2.5 IU/mL (0.0-0.9); THYROGLOBULIN RIA < 2.0 ng/mL (.)
== END ==
LOC: M LAB REF 18:20
DX: E89.0 Postprocedural hypothyroidism (principal)
CPT/HCPCS: 84443

== ENCOUNTER → 2017-06-11 | Outpatient (REF) | payer BC ==
[2017-06-11 19:48] LABS: THYROID STIMULATING HORMONE 0.165 uIU/ML (0.358-3.740)
== END ==
LOC: M LAB REF 18:39
DX: E89.0 Postprocedural hypothyroidism (principal)
CPT/HCPCS: 84443

== ENCOUNTER → 2017-10-18 | Outpatient (REF) | payer BC ==
[2017-10-18 20:53] LABS: FREE T4 1.04 NG/DL (0.76-1.46)
== END ==
LOC: M LABDRWAD 19:54
DX: E89.0 Postprocedural hypothyroidism (principal)
CPT/HCPCS: 84443

== ENCOUNTER → 2018-04-12 | Outpatient (REF) | payer BC ==
[2018-04-16 11:06] LABS: THRYOGLOBULIN ANTIBODIES (ATA) < 1.0 IU/mL (0.0-0.9); THYROGLOBULIN QUANTITATIVE < 0.1 ng/mL (1.4-29.2)
== END ==
LOC: M LABDRWAD 19:09
PROVIDERS: ATTEND Nuclear Medicine
DX: E89.0 Postprocedural hypothyroidism (principal); C73 Malignant neoplasm of thyroid gland

== ENCOUNTER → 2018-04-19 | Outpatient (REF) | payer BC ==
[2018-04-19 20:00] LABS: FREE T4 1.65 NG/DL (0.76-1.46); THYROID STIMULATING HORMONE 0.139 uIU/ML (0.358-3.740)
== END ==
LOC: M LABDRWAD 19:13 → M LAB REF 19:13
PROVIDERS: ATTEND Internal Medicine Endocrinology, Diabetes & Metabolism
DX: E89.0 Postprocedural hypothyroidism (principal)

== ENCOUNTER → 2018-11-12 | Outpatient (CLI) | payer BC ==
[2018-11-12 20:51] LABS: FREE T4 1.21 NG/DL (0.76-1.46); THYROID STIMULATING HORMONE 3.14 uIU/ML (0.358-3.740)
[2018-11-14 10:30] LABS: THRYOGLOBULIN ANTIBODIES (ATA) < 1.0 IU/mL (0.0-0.9); THYROGLOBULIN QUANTITATIVE < 0.1 ng/mL (1.4-29.2)
== END ==
LOC: M LABDRWAD 17:27
PROVIDERS: ATTEND Nurse Practitioner Family
DX: E89.0 Postprocedural hypothyroidism (principal); C73 Malignant neoplasm of thyroid gland

== ENCOUNTER → 2019-05-15 | Outpatient (REF) | payer BC ==
[2019-05-15 20:11] LABS: FREE T4 1.45 NG/DL (0.76-1.46); THYROID STIMULATING HORMONE 0.363 uIU/ML (0.358-3.740)
== END ==
LOC: M LABDRWAD 19:25
PROVIDERS: ATTEND Nurse Practitioner Family
DX: E89.0 Postprocedural hypothyroidism (principal)

== ENCOUNTER → 2019-06-20 | Outpatient (REF) | payer BC ==
[2019-06-20 18:04] LABS: BASO % 0.4 % (0.0-1.0); EOS # 0.2 10^3/uL (0.0-0.5); EOS % 3.1 % (0.0-3.0); HEMATOCRIT 42.4 % (42.0-52.0); HEMOGLOBIN 14.5 g/dl (13.5-17.5); LYMPH # 2.3 10^3/uL (1.5-5.0); LYMPH % 33.6 % (24.0-44.0); MEAN CORPUSCULAR HEMOGLOBIN 30.8 pg (27.0-33.0); MEAN CORPUSCULAR HGB CONC 34.2 g/dl (32.0-36.5); MONO # 0.6 10^3/uL (0.0-0.8); MONO % 9.2 % (0.0-5.0); NEUTROPHILS # 3.7 10^3/uL (1.5-8.5); NEUTROPHILS % 53.4 % (36.0-66.0); PLATELET COUNT, AUTOMATED 280 10^3/uL (150-450); RED BLOOD COUNT 4.71 10^6/uL (4.30-6.10); WHITE BLOOD COUNT 6.9 10^3/uL (4.0-10.0)
[2019-06-20 18:40] LABS: BLOOD UREA NITROGEN 18 MG/DL (7-18); CALCIUM LEVEL 8.7 MG/DL (8.5-10.1); CARBON DIOXIDE LEVEL 28 MEQ/L (21-32); CHLORIDE LEVEL 105 MEQ/L (98-107); CREATININE FOR GFR 0.92 MG/DL (0.70-1.30); FREE THYROXINE INDEX 4.4 % (1.4-3.8); GLOMERULAR FILTRATION RATE > 60.0 (>60); GLUCOSE, FASTING 100 MG/DL (70-100); SODIUM LEVEL 139 MEQ/L (136-145); T UPTAKE 37 % (33-40); THYROID STIMULATING HORMONE 0.101 uIU/ML (0.358-3.740); THYROXINE (T4) 11.9 UG/DL (4.5-12.0); VITAMIN B12 LEVEL 291 PG/ML (247-911)
[2019-06-20 18:52] LABS: TOTAL 25(OH) VITAMIN D 27.8 NG/ML (30.0-100.0)
== END ==
LOC: M LABDRWAD 17:13
DX: F90.9 Attention-deficit hyperactivity disorder, unspecified type (principal)

== ENCOUNTER → 2019-11-11 | Outpatient (REF) | payer BC ==
[2019-11-11 17:20] LABS: FREE T4 1.03 NG/DL (0.76-1.46); THYROID STIMULATING HORMONE 0.151 uIU/ML (0.358-3.740)
[2019-11-12 09:15] LABS: THYROGLOBULIN ANTIBODY < 15.0 U/ML (<60.0)
[2019-11-13 11:12] LABS: THRYOGLOBULIN ANTIBODIES (ATA) < 1.0 IU/mL (0.0-0.9); THYROGLOBULIN QUANTITATIVE < 0.1 ng/mL (1.4-29.2)
== END ==
LOC: M LABDRWAD 16:30
PROVIDERS: ATTEND Nurse Practitioner Family
DX: E89.0 Postprocedural hypothyroidism (principal); C73 Malignant neoplasm of thyroid gland

== ENCOUNTER → 2020-05-07 | Outpatient (REF) | payer BC ==
[2020-05-07 19:54] LABS: FREE T4 1.63 NG/DL (0.76-1.46); THYROID STIMULATING HORMONE 0.013 uIU/ML (0.358-3.740)
[2020-05-07 19:55] LABS: THYROGLOBULIN ANTIBODY < 15.0 U/ML (<60.0)
[2020-05-11 11:08] LABS: THRYOGLOBULIN ANTIBODIES (ATA) < 1.0 IU/mL (0.0-0.9); THYROGLOBULIN QUANTITATIVE < 0.1 ng/mL (1.4-29.2)
== END ==
LOC: M LABDRWAD 19:08
PROVIDERS: ATTEND Internal Medicine Endocrinology, Diabetes & Metabolism
DX: E89.0 Postprocedural hypothyroidism (principal); C73 Malignant neoplasm of thyroid gland

== ENCOUNTER → 2021-08-08 | Outpatient (CLI) | payer BC ==
[2021-08-08 17:26] LABS: FREE T4 0.98 NG/DL (0.76-1.46); THYROID STIMULATING HORMONE 1.17 uIU/ML (0.358-3.740)
== END ==
LOC: M ADAMS 15:20
PROVIDERS: ATTEND Internal Medicine Endocrinology, Diabetes & Metabolism
DX: E89.0 Postprocedural hypothyroidism (principal)

== ENCOUNTER → 2021-11-30 | Outpatient (CLI) | payer BC ==
[2021-11-30 18:33] LABS: FREE T4 1.62 NG/DL (0.76-1.46); THYROID STIMULATING HORMONE 0.327 uIU/ML (0.358-3.740)
[2021-11-30 20:01] LABS: THYROGLOBULIN ANTIBODY 18.2 U/ML (<60.0)
== END ==
LOC: M ADAMS 13:10
PROVIDERS: ATTEND Nurse Practitioner Family
DX: E89.0 Postprocedural hypothyroidism (principal); C73 Malignant neoplasm of thyroid gland

== ENCOUNTER → 2022-03-06 | Outpatient (REF) | payer BC ==
[2022-03-06 19:21] LABS: FREE T4 1.48 NG/DL (0.89-1.76); THYROID STIMULATING HORMONE 0.26 uIU/ML (0.55-4.78)
== END ==
LOC: M LABDRWAD 15:49
PROVIDERS: ATTEND Nurse Practitioner Family
DX: E89.0 Postprocedural hypothyroidism (principal)

== ENCOUNTER → 2022-12-05 | Outpatient (REF) | payer BC ==
[2022-12-05 18:00] LABS: FREE T4 0.98 NG/DL (0.89-1.76); THYROGLOBULIN ANTIBODY < 15.0 U/ML (<60.0); THYROID STIMULATING HORMONE 19.399 uIU/ML (0.55-4.78)
== END ==
LOC: M LABDRWAD 16:45
PROVIDERS: ATTEND Nurse Practitioner Family
DX: E89.0 Postprocedural hypothyroidism (principal); C73 Malignant neoplasm of thyroid gland

== ENCOUNTER 2023-03-26 15:03 | Emergency (ER) | payer BC ==
[~2023-03-26] VITALS: Ht 182.9 cm; Wt 88.5 kg
[2023-03-26] MEDS ORDERED: VYVA50CA4 (15:15)
[2023-03-26] MEDS ORDERED: ADDE10TA (15:15)
[2023-03-26] MEDS ORDERED: LEVO175T2 (15:16)
[2023-03-26 15:49] LABS: BASO % 0.1 % (0.0-1.0); EOS # 0.1 10^3/uL (0.0-0.5); EOS % 0.4 % (0.0-3.0); HEMOGLOBIN 14.6 g/dl (13.5-17.5); LYMPH % 12.4 % (24.0-44.0); MEAN CORPUSCULAR HEMOGLOBIN 31.7 pg (27.0-33.0); MEAN CORPUSCULAR VOLUME 93.3 fl (80.0-96.0); MONO # 0.9 10^3/uL (0.0-0.8); MONO % 5.5 % (2.0-8.0); NEUTROPHILS % 80.9 % (36.0-66.0); PLATELET COUNT, AUTOMATED 290 10^3/uL (150-450); RED BLOOD COUNT 4.61 10^6/uL (4.30-6.10); WHITE BLOOD COUNT 16.1 10^3/uL (4.0-10.0)
[2023-03-26 16:12] LABS: BLOOD UREA NITROGEN 21 MG/DL (9-23); CALCIUM LEVEL 8.9 MG/DL (8.5-10.1); CARBON DIOXIDE LEVEL 27 MMOL/L (20-31); CHLORIDE LEVEL 107 MMOL/L (98-107); CREATININE FOR GFR 1.02 MG/DL (0.70-1.30); GLOMERULAR FILTRATION RATE > 60.0 (>60); GLUCOSE, FASTING 137 MG/DL (60-100); POTASSIUM SERUM 4.7 MMOL/L (3.5-5.1); SODIUM LEVEL 140 MMOL/L (136-145)
[2023-03-26] MEDS ORDERED: FAMOTIDINE IV BAG 40 MG in IV 1 EA IV ONE (16:20)
[2023-03-26] MEDS ORDERED: CLINDAMYCIN 150MG CAPSULE PO ONE (16:20)
[2023-03-26] MEDS ORDERED: methylPREDNISolone 125MG 2ML VIAL IV ONE (16:20)
[2023-03-26] MEDS ORDERED: diphenhydrAMINE 50MG CAP PO ONE (16:20)
[2023-03-26] MEDS ORDERED: ACETAMINOPHEN TAB 650MG DOSE (2X325MG) PO ONE (17:10)
[2023-03-26 19:00] VITALS: BP 140/80; O2SAT 97
[2023-03-26] MEDS ORDERED: CLEO150C PO (19:05)
[2023-03-26 19:20] VITALS: TEMP 97.6
== END 2023-03-26 19:28 | disposition home or self-care (01) ==
LOC: EDBD 15:03 → M ED 15:03
DX: T78.40XA Allergy, unspecified, initial encounter (principal); Z85.850 Personal history of malignant neoplasm of thyroid; E73.9 Lactose intolerance, unspecified; Z88.5 Allergy status to narcotic agent; Z91.018 Allergy to other foods
CPT/HCPCS: 71046; 80048; 85025; 93005; 93041; 94760; 96365; 96366; 96375; 99291; J2930; S0028

== ENCOUNTER → 2023-07-30 | Outpatient (REF) | payer BC ==
[~2023-07-30] MED LIST changes: +ADDE10TA; +CLEO150C PO; +LEVO175T2; +VYVA50CA4
[2023-07-30 17:48] LABS: FREE T4 1.1 NG/DL (0.89-1.76); THYROID STIMULATING HORMONE 6.359 uIU/ML (0.55-4.78)
== END ==
LOC: M LABDRWAD 16:53
PROVIDERS: ATTEND Nurse Practitioner Family
DX: E89.0 Postprocedural hypothyroidism (principal)

== ENCOUNTER → 2023-08-23 | Outpatient (REF) | payer BC ==
[2023-08-23 17:27] LABS: APPEARANCE, URINE CLEAR (CLEAR); BACTERIA, URINE AUTO NEGATIVE (NEGATIVE); BILIRUBIN, URINE AUTO NEGATIVE (NEGATIVE); BLOOD, URINE BLOOD NEGATIVE (NEGATIVE); COLOR, URINE YELLOW (YELLOW); GLUCOSE, URINE (UA) AUTO NEGATIVE (NEGATIVE); KETONE, URINE AUTO NEGATIVE (NEGATIVE); LEUKOCYTE ESTERASE, URINE AUTO NEGATIVE (NEGATIVE); MUCUS, URINE SMALL (NEGATIVE); NITRITE, URINE AUTO NEGATIVE (NEGATIVE); PROTEIN, URINE AUTO NEGATIVE (NEGATIVE); RBC, URINE AUTO 0 /HPF (0-3); SQUAMOUS EPITHELIAL CELL UR AU 0 /HPF (0-6); UROBILINOGEN, URINE AUTO 0.2 mg/dL (0.0-2.0); WBC, URINE AUTO 0 /HPF (0-3)
[2023-08-23 17:28] LABS: BASO % 0.5 % (0.0-1.0); EOS # 0.2 10^3/uL (0.0-0.5); EOS % 1.8 % (0.0-3.0); HEMATOCRIT 39.1 % (42.0-52.0); HEMOGLOBIN 13.6 g/dl (13.5-17.5); LYMPH # 2.7 10^3/uL (1.5-5.0); LYMPH % 31.9 % (24.0-44.0); MEAN CORPUSCULAR HEMOGLOBIN 32.2 pg (27.0-33.0); MEAN CORPUSCULAR HGB CONC 34.8 g/dl (32.0-36.5); MEAN CORPUSCULAR VOLUME 92.4 fl (80.0-96.0); MONO # 0.7 10^3/uL (0.0-0.8); MONO % 8.1 % (2.0-8.0); NEUTROPHILS # 4.8 10^3/uL (1.5-8.5); NEUTROPHILS % 57.3 % (36.0-66.0); PLATELET COUNT, AUTOMATED 256 10^3/uL (150-450); RED BLOOD COUNT 4.23 10^6/uL (4.30-6.10); WHITE BLOOD COUNT 8.4 10^3/uL (4.0-10.0)
[2023-08-23 17:30] LABS: ALBUMIN 4.1 G/DL (3.2-5.2); ALKALINE PHOSPHATASE 71 U/L (46-116); ALT/SGPT 31 U/L (7.0-40); AST/SGOT 13 U/L (<34); BILIRUBIN,TOTAL 0.3 MG/DL (0.3-1.2); BLOOD UREA NITROGEN 19 MG/DL (9-23); CALCIUM LEVEL 9.2 MG/DL (8.5-10.1); CARBON DIOXIDE LEVEL 29 MMOL/L (20-31); CHLORIDE LEVEL 106 MMOL/L (98-107); GLOMERULAR FILTRATION RATE > 60.0 (>60); GLUCOSE, FASTING 81 MG/DL (60-100); POTASSIUM SERUM 4.3 MMOL/L (3.5-5.1); SODIUM LEVEL 138 MMOL/L (136-145); TOTAL PROTEIN 6.8 G/DL (5.7-8.2)
[2023-08-23 17:32] LABS: FREE T4 1.15 NG/DL (0.89-1.76); THYROID STIMULATING HORMONE 14.448 uIU/ML (0.55-4.78)
== END ==
LOC: M SFHCLERA 14:43
PROVIDERS: ATTEND Family Medicine
DX: R03.0 Elevated blood-pressure reading, without diagnosis of hypertension (principal)

== ENCOUNTER → 2024-05-29 | Outpatient (REF) | payer BC ==
[2024-05-29 18:47] LABS: THYROID STIMULATING HORMONE 86.923 uIU/ML (0.55-4.78)
[2024-05-29 18:48] LABS: FREE T4 0.8 NG/DL (0.89-1.76)
== END ==
LOC: M LABDRWAD 17:45
PROVIDERS: ATTEND Nurse Practitioner Family
DX: C73 Malignant neoplasm of thyroid gland (principal)